=== PATIENT | female | born 1995 | race Caucasian/White ===

== ENCOUNTER → 2020-02-24 | Outpatient (CLI) | payer BC ==
[~2020-02-24] MED LIST: BENADRYL25 M2 PO; MOTRIN 800800 MG/TAB PO; NEWMANS TOP; PRENATAL TABLET PO; TYLENOL 500MG500 MG PO
== END ==
LOC: ZCOL.LAB 02:11
DX: Z20.828 Contact with and (suspected) exposure to other viral communicable diseases (principal)

== ENCOUNTER 2020-02-28 12:45 | Inpatient (IN) | payer BC ==
[2020-02-28] VITALS (34 sets, daily range): BP systolic 108–171; BP diastolic 56–106; PULSE 76–133; TEMP 97.9–98.9
[~2020-02-28] VITALS: Ht 162.6 cm; Wt 74.1 kg
--- NOTE | 2020-02-28 12:40 | NUR ---
Pt arrives on unit via wheelchair with spouse. States SROM of clear fluid at 1215. Denies vaginal bleeding, and reports GFM. Changed into gown. EFM and toco applied. VSS. SVE per this RN /1 with thin mec fluid noted. Dr. Cardozo notified. Orders for admission. IV started in LF. Labs drawn. LR infusing. Admission assessment completed. Consents signed. Capo Reynoso CRNA requested to unit. Pt reports increase of pressure. SVE per Mauricio Cannon RN /0. Dr. Cardozo requested to unit.
[~2020-02-28 12:45] MED LIST changes: -BENADRYL25 M2 PO; -MOTRIN 800800 MG/TAB PO; -NEWMANS TOP; -TYLENOL 500MG500 MG PO
[2020-02-28] MEDS ORDERED: BENADRYL25 M2 PO (13:03)
[2020-02-28] MEDS ORDERED: TYLENOL 500MG500 MG PO (13:03)
[2020-02-28 13:05] LABS: BASO % 0.2 % (0.0-2.0); EOS % 0.1 % (0-4.0); GRAN # 15.3 (1.4-6.5); GRAN % 84.9 % (42.2-75.2); HEMATOCRIT 44.7 % (37.0-47.0); HEMOGLOBIN 15.9 g/dl (12.5-16.0); LYMPH # 1.4 (1.2-3.4); LYMPH % 7.6 % (20.0-51.0); MEAN CELL VOLUME 88 fl (80.0-100.0); MEAN CORPUSCULAR HEMOGLOBIN 31 pg (27.0-31.0); MEAN CORPUSCULAR HGB CONC 36 g/dl (33.0-37.0); MEAN PLATELET VOLUME 9.9 fl (7.4-10.4); MONO # 1.2 (0.1-0.6); MONO % 6.5 % (1.7-9.3); PLATELET COUNT 261 K/mm3 (130-400); RED BLOOD COUNT 5.08 M/mm3 (4.10-5.30); REDCELL DISTRIBUTION WIDTH-CV 13.4 % (11.5-14.5)
--- NOTE | 2020-02-28 13:10 | NUR ---
Patient sitting up on edge of bed for placement of epidural. Capo Reynoso MITER [employer]WYER at bedside. Difficulty tracing FHR due to maternal position. 1315: Single shot given and patient tolerates well. Patient repositioned and safety precautions gone over. 1415: SVE-/ and Roles at nurses station and updated. No new orders given. Patient left lateral with leg resting in stirrup.
--- NOTE | 2020-02-28 14:35 | NUR ---
Patient uncomfortable with contractions and Capo Reynoso at bedside. 1445: Patient sat up for replacement of epidural. Wade at bedside. 1449: Single shot given and patient tolerates well. Difficulty tracing FHR due to maternal position. 1505: Patient right lateral with peanut ball in place and becoming more comfortable with each contraction. 1525: Patient left lateral with peanut ball in place. 1530: Adam catheter placed and patient tolerates well. SVE-9/100/0 and patient left lateral. 1605: Patient sitting up in kwabena position and plan of care discussed. 1618: FHR baseline 125bpm and variable deceleration decreasing to 105bpm gradually returns to baseline. 1625: SVE-10/100/[address] Cardozo called and notified. Adam catheter removed at this time. 1639: Pushing instruction given to patient and patient begins to push with each contraction. 1650: FHR baseline 125-135bpm with recurrent variable decelerations and moderate variability noted. Mild foul smell noted with meconium fluid. 1710: Patient continues to push with each contraction and FHR tracing recurrent variable decelerations. 1745: Patient continues to push and recurrent variables noted with moderate-minimal variability noted. 1815: Bedside report given to Prosper RN and RN continues to push with patient.
--- NOTE | 2020-02-28 19:25 | NUR ---
1850- DR. NAVA IN ROOM FOR DELIVERY. 1912- SPONTANEOUS VAGINAL DELIVERY OF VIABLE BABY GIRL, THICK MECONIUM FLUID. BABY TO MOTHER'S CHEST, CORD CLAMPED BY DR. NAVA, CUT BY FOB. BABY CARES ASSUMED BY LINNEA MCCLENDON. 1917- SPONTANEOUS DELIVERY OF INTACT PLACENTA. PITOCIN STARTED AT 333MLS/HR PER PROTOCOL. DR. NAVA USES RED FERN, 75MLS URINE OUT. CORD GASES COLLECTED. 1920- LIDOCAINE GIVEN BY DR. NAVA AT THE PERINEUM PRIOR TO REPAIR. 1921- DR. NAVA BEGINS REPAIR OF 2ND DEGREE LACERATION. 1924- RECOVERY STARTED.
--- NOTE | 2020-02-28 22:15 | NUR ---
PT UP TO BATHROOM AT THIS TIME. ABLE TO VOID 800MLS WITHOUT DIFFICULTY. PERICARE PROVIDED, ICE, PAD, MESH UNDERWEAR ON. EPIDURAL REMOVED, TIP INTACT. PT ABLE TO AMBULATE TO WITHOUT DIFFICULTY.
[2020-02-29 01:44] VITALS: BP 113/57; PULSE 75; TEMP 97.9
[2020-02-29 05:35] VITALS: BP 96/53; PULSE 79; TEMP 97.7
[2020-02-29 08:18] VITALS: BP 113/67; PULSE 73; TEMP 98.6
[2020-02-29] MEDS ORDERED: MOTRIN 800800 MG/TAB PO (08:40)
[2020-02-29 12:20] VITALS: BP 128/63; PULSE 73; TEMP 97.2
--- NOTE | 2020-02-29 12:28 | NUR ---
Initial visit; Parents thanked [employer] President [employer] for offering congratulations and God's blessings for the of their daughter. [employer] thanked family for choosing [facility].
[2020-02-29 17:08] VITALS: BP 123/83; PULSE 79; TEMP 97.8
[2020-02-29 20:30] VITALS: BP 119/79; PULSE 91; TEMP 98
[2020-03-01 07:00] VITALS: BP 128/90; PULSE 91; TEMP 98.1
[2020-03-01] MEDS ORDERED: NEWMANS TOP (09:05)
== END 2020-03-01 14:00 | disposition home or self-care (01) | DRG 807 ==
LOC: OB 12:45 → LDR 12:45 → OB 16:13
PROVIDERS: Obstetrics & Gynecology; ADMIT Obstetrics & Gynecology
PROC: 10E0XZZ Delivery of Products of Conception, External Approach (ICD-10-PCS; principal; 2020-02-28)
PROC: 0KQM0ZZ Repair Perineum Muscle, Open Approach (ICD-10-PCS; 2020-02-28)
DX: O69.89X0 Labor and delivery complicated by other cord complications, not applicable or unspecified (principal); Z37.0 Single live birth; O77.0 Labor and delivery complicated by meconium in amniotic fluid; O70.1 Second degree perineal laceration during delivery; Z3A.39 39 weeks gestation of pregnancy
CPT/HCPCS: J2400; J2590; J2795; J7120

== ENCOUNTER 2020-05-17 07:14 | Day surgery (SDC) | payer BC ==
[~2020-05-17] VITALS: Ht 162.6 cm; Wt 67.5 kg
[2020-05-17] VITALS (7 sets, daily range): BP systolic 96–115; BP diastolic 54–81; PULSE 59–81; TEMP 98.6
[~2020-05-17 07:14] MED LIST changes: +BENADRYL25 M2 PO; +MOTRIN 800800 MG/TAB PO; +NEWMANS TOP; +TYLENOL 500MG500 MG PO
[2020-05-17] MEDS ORDERED: MOTRIN 600600 MG/TAB PO (09:18)
[2020-05-17] MEDS ORDERED: PERCOCET 325 MG1 TA2 PO (09:18)
--- NOTE | 2020-05-17 10:21 | NUR ---
Room air sats 98%. Continues to rest with eyes closed.
--- NOTE | 2020-05-17 10:36 | NUR ---
Continues to rest and not disturbed.
--- NOTE | 2020-05-17 10:51 | NUR ---
Resting with eyes closed when not disturbed.
--- NOTE | 2020-05-17 11:06 | NUR ---
Patient returns to room 7 per cart from surgery accompanied by Xavier WHATLEY and Amanda RN. Temp 97.6 and room air sats 97%. Exofen dressing on umbilical hernia site dry and wound edges well approixmated. Siderails up x2 and call light in reach. IV fluids continue to infuse.
--- NOTE | 2020-05-17 11:06 | NUR ---
Awake and sipping on water.
--- NOTE | 2020-05-17 11:36 | NUR ---
Eating muffin and continues to drink water. Denies pain or nausea.
--- NOTE | 2020-05-17 11:55 | NUR ---
IV to INT. Continues to deny pain or nausea. Exofen dressing dry on the abdomen.
--- NOTE | 2020-05-17 12:07 | NUR ---
INT needle discontinued and dresses self. Given dismissal instructions and voices understanding of these. Informed that scritps were sent to the pharmacy.
--- NOTE | 2020-05-17 12:10 | NUR ---
Dismissed to home driven by spouse and taken to the front door per wheelchair and assisted into vehicle with instructions in hand.
== END 2020-05-17 12:10 | disposition home or self-care (01) ==
LOC: SDCO 07:14
DX: K42.9 Umbilical hernia without obstruction or gangrene (principal); Z20.828 Contact with and (suspected) exposure to other viral communicable diseases
CPT/HCPCS: J0690; J1100; J1885; J2405; J2704; J3010; J7120